=== PATIENT | male | born 1940 | race Caucasian/White ===

== ENCOUNTER → 2020-04-03 | Outpatient (CLI) | payer OTHER | END | disposition home or self-care (01) | LOC: SHCH 11:06 | PROVIDERS: ATTEND Internal Medicine | DX: I37.1 Nonrheumatic pulmonary valve insufficiency (principal); R00.1 Bradycardia, unspecified; R55 Syncope and collapse; I10 Essential (primary) hypertension; E78.5 Hyperlipidemia, unspecified | CPT/HCPCS: 93306; 93356 ==

== ENCOUNTER 2020-12-16 12:03 | Inpatient (IN) | payer OTHER ==
[~2020-12-16] VITALS: Ht 160 cm; Wt 90.9 kg
[2020-12-16 12:42] LABS: BASOPHILS % (AUTO) 0.8 % (0.0-5.0); EOSINOPHILS % (AUTO) 3.5 % (0.0-8.0); HEMATOCRIT 39.4 % (42-54); LYMPHOCYTES % (AUTO) 28.1 % (21.0-51.0); MEAN CORPUSCULAR HEMOGLOBIN 31.4 pg (27.0-33.0); MEAN CORPUSCULAR VOLUME 92.3 fL (79-99); MONOCYTES % (AUTO) 11.4 % (3.0-13.0); NEUTROPHILS % (AUTO) 55.7 % (40.0-77.0); PLATELET COUNT (AUTO) 254 K/uL (130-400); RED BLOOD CELL COUNT(AUTO) 4.27 MIL/uL (4.50-6.20); RED CELL DISTRIBUTION WIDTH 12.8 % (11.0-15.5); WHITE BLOOD COUNT (AUTO) 8.8 K/uL (4.8-10.8)
[2020-12-16 13:06] LABS: ALBUMIN 3.5 g/dL (3.5-5.0); BILIRUBIN,TOTAL 0.5 mg/dL (0.2-1.0); TOTAL PROTEIN, SERUM 7.5 g/dL (6.0-8.3)
[2020-12-16] MEDS: LOSARTAN 100 MG TABLET PO SCH (15:30)
[2020-12-16] MEDS ORDERED: HYDRALAZINE 20MG/ML VIAL IM PRN (15:30)
[2020-12-16] MEDS ORDERED: ONDANSETRON 4MG INJ IVP PRN (16:00)
[2020-12-16] MEDS ORDERED: ACETAMINOPHEN 325 MG TAB PO PRN (16:00)
[2020-12-16] MEDS ORDERED: MORPHINE 2 MG SYG IVP PRN (16:00)
[2020-12-16] MEDS: PANTOPRAZOLE 40 MG TAB DR PO SCH (16:50)
[2020-12-16] MEDS: ATORVASTATIN 40 MG TABLET PO SCH (20:54)
[2020-12-17] VITALS (11 sets, daily range): BP systolic 115–179; BP diastolic 59–86
[2020-12-17] MEDS ORDERED: LEVO100 PO (02:02)
[2020-12-17] MEDS ORDERED: ATOR40TA69 PO (02:02)
[2020-12-17] MEDS ORDERED: MULT-1367 PO (02:02)
[2020-12-17] MEDS ORDERED: LOSA100T58 PO (02:02)
[2020-12-17] MEDS ORDERED: OMEP20CA12 PO (02:02)
[2020-12-17] MEDS ORDERED: RIVA2.5T PO (02:02)
[2020-12-17] MEDS ORDERED: METO100T14 PO (02:02)
[2020-12-17] MEDS ORDERED: CHOL400C9 PO (03:36)
[2020-12-17] MEDS ORDERED: AEC81 PO (03:36)
[2020-12-17] MEDS: LEVOTHYROXINE 100 MCG TABLET PO SCH (06:00)
[2020-12-17 06:22] LABS: BASOPHILS % (AUTO) 0.6 % (0.0-5.0); EOSINOPHILS % (AUTO) 3.8 % (0.0-8.0); LYMPHOCYTES % (AUTO) 30.7 % (21.0-51.0); MEAN CORPUSCULAR HEMOGLOBIN 31.6 pg (27.0-33.0); MEAN CORPUSCULAR HGB CONC 34.1 g/dL (32.0-36.0); MEAN CORPUSCULAR VOLUME 92.7 fL (79-99); MONOCYTES % (AUTO) 8.2 % (3.0-13.0); NEUTROPHILS % (AUTO) 56.2 % (40.0-77.0); PLATELET COUNT (AUTO) 224 K/uL (130-400); RED BLOOD CELL COUNT(AUTO) 3.99 MIL/uL (4.50-6.20); RED CELL DISTRIBUTION WIDTH 12.9 % (11.0-15.5); WHITE BLOOD COUNT (AUTO) 8.8 K/uL (4.8-10.8)
[2020-12-17 07:05] LABS: ALANINE AMINOTRANSFERASE 26 U/L (12-78); ALBUMIN 3.7 g/dL (3.5-5.0); ASPARTATE AMINOTRANSFERASE 20 U/L (10-37); BILIRUBIN,TOTAL 0.6 mg/dL (0.2-1.0); CARBON DIOXIDE 25 mmol/L (21-32); CHLORIDE 108 mmol/L (101-111); GLOMERULAR FILTR. RATE CALC 77 mL/min (>60); GLUCOSE,RANDOM 99 mg/dL (70-105); POTASSIUM 4.1 mmol/L (3.5-5.1); SODIUM SERUM 144 mmol/L (136-145); UREA NITROGEN, BLOOD 26 mg/dL (7-18)
[2020-12-17 07:44] LABS: INR 1.05 (0.85-1.15); PROTHROMBIN TIME 11.4 SEC (9.6-11.6)
[2020-12-17 07:45] LABS: PARTIAL THROMBOPLASTIN TIME 24.7 SEC (26.3-35.5)
[2020-12-17] MEDS ORDERED: ENOXAPARIN SODIUM 30 MG/0.3 ML SQ SCH (09:00)
[2020-12-17] MEDS: LOSARTAN 100 MG TABLET PO SCH (09:54)
[2020-12-17] MEDS: PANTOPRAZOLE 40 MG TAB DR PO SCH (09:54)
[2020-12-17] MEDS ORDERED: DILTIAZEM 25MG INJ IVP SCH (10:00)
[2020-12-17] MEDS ORDERED: DILTIAZEM 125 MG/25 ML INJ 125 MG in 0.9%NACL 100ML 100 ML IV PRN (10:00)
[2020-12-17] MEDS: DRONEDARONE HYDROCHLORIDE 400 MG TABLET PO SCH ×2 (10:47→21:04)
[2020-12-17] MEDS ORDERED: SODIUM BICARB 50MEQ 50ML VIAL 0 ML ONE (12:12)
[2020-12-17] MEDS ORDERED: IODIXANOL 320 MG/ML 100 ML VIAL ONE (12:12)
[2020-12-17] MEDS ORDERED: LIDOCAINE HCL 1% MDV 50ML VIAL ONE (12:13)
[2020-12-17] MEDS: 0.9%NACL 1000ML 1,000 ML IV SCH ×3 (12:56→23:42)
[2020-12-17] MEDS ORDERED: CEFAZOLIN SODIUM 1 GM VIAL ONE (14:29)
[2020-12-17] MEDS ORDERED: BUPIVACAINE/PF 0.25% 30ML VIAL IJ ONE (15:05)
[2020-12-17] MEDS ORDERED: MIDAZOLAM HCL 1 MG/ML 2ML VIAL ONE ×2 (15:07→15:23)
[2020-12-17] MEDS ORDERED: MEPERIDINE-PF 25 MG/ML SYG ONE ×2 (15:07→15:23)
[2020-12-17] MEDS ORDERED: METOPROLOL TARTRATE 1 MG/ML 5ML VIAL IV ONE (16:09)
[2020-12-17] MEDS ORDERED: OCTYL 2-CYANOACRYLATE 1 EACH TP ONE ×2 (16:14→16:15)
[2020-12-17] MEDS ORDERED: ACETAMINOPHEN WITH CODEINE 1 TAB TAB PO PRN ×2 (17:00)
[2020-12-17] MEDS ORDERED: ONDANSETRON 4MG INJ IV PRN (17:00)
[2020-12-17] MEDS ORDERED: TEMAZEPAM 30 MG CAP PO PRN (17:00)
[2020-12-17] MEDS: LABETALOL HCL 100 MG TABLET PO SCH ×2 (17:48→21:00)
[2020-12-17] MEDS: ATORVASTATIN 40 MG TABLET PO SCH (21:04)
[2020-12-17] MEDS: CEFAZOLIN SODIUM 1 GM VIAL IVP SCH (23:42)
[2020-12-18] VITALS: BP 145/69
[2020-12-18 04:00] VITALS: BP 141/66
[2020-12-18] MEDS: LEVOTHYROXINE 100 MCG TABLET PO SCH (05:22)
[2020-12-18] MEDS: DRONEDARONE HYDROCHLORIDE 400 MG TABLET PO SCH (05:23)
[2020-12-18] MEDS: LABETALOL HCL 100 MG TABLET PO SCH (05:23)
[2020-12-18] MEDS: 0.9%NACL 1000ML 1,000 ML IV SCH (05:24)
[2020-12-18] MEDS: CEFAZOLIN SODIUM 1 GM VIAL IVP SCH (05:27)
[2020-12-18 07:46] VITALS: BP 129/67
[2020-12-18] MEDS: PANTOPRAZOLE 40 MG TAB DR PO SCH (08:57)
[2020-12-18] MEDS: LOSARTAN 100 MG TABLET PO SCH (08:57)
[2020-12-18] MEDS ORDERED: DRON400T7 PO (09:27)
[2020-12-18 11:48] VITALS: BP 108/95
[2020-12-19] MEDS ORDERED: RIVAROXABAN 2.5 MG TABLET PO SCH (17:00)
== END 2020-12-18 14:34 | disposition home or self-care (01) | DRG 243 ==
LOC: EDH 12:03 → EDHIP 15:34 → 4DH 12-17 00:27
PROVIDERS: ADMIT Hospitalist; ATTEND Hospitalist
PROC: 0JH606Z Insertion of Pacemaker, Dual Chamber into Chest Subcutaneous Tissue and Fascia, Open Approach (ICD-10-PCS; principal; 2020-12-17)
PROC: 02HK3JZ Insertion of Pacemaker Lead into Right Ventricle, Percutaneous Approach (ICD-10-PCS; 2020-12-17)
PROC: 02H63JZ Insertion of Pacemaker Lead into Right Atrium, Percutaneous Approach (ICD-10-PCS; 2020-12-17)
DX: I49.5 Sick sinus syndrome (principal); I50.32 Chronic diastolic (congestive) heart failure; I48.0 Paroxysmal atrial fibrillation; I25.10 Atherosclerotic heart disease of native coronary artery without angina pectoris; I95.1 Orthostatic hypotension; E78.00 Pure hypercholesterolemia, unspecified; E78.5 Hyperlipidemia, unspecified; E03.9 Hypothyroidism, unspecified; E66.01 Morbid (severe) obesity due to excess calories; I73.9 Peripheral vascular disease, unspecified; D64.9 Anemia, unspecified; S00.10XA Contusion of unspecified eyelid and periocular area, initial encounter; Y93.89 Activity, other specified; Y92.89 Other specified places as the place of occurrence of the external cause; Y99.8 Other external cause status; Z68.35 Body mass index [BMI] 35.0-35.9, adult; Z91.19 Patient's noncompliance with other medical treatment and regimen; Z95.5 Presence of coronary angioplasty implant and graft; Z79.01 Long term (current) use of anticoagulants; Z79.82 Long term (current) use of aspirin; Z79.899 Other long term (current) drug therapy; Z82.49 Family history of ischemic heart disease and other diseases of the circulatory system; I11.0 Hypertensive heart disease with heart failure
CPT/HCPCS: 33208; 36415; 71045; 71046; 80053; 82607; 82728; 82746; 83540; 84484; 85025; 85610; 85730; 93005; 99156; 99157; C1785; G0378; J0690; J2175; J2250; J2405; J3490; Q9967

== ENCOUNTER → 2023-07-03 | Outpatient (CLI) | payer OTHER ==
[~2023-07-03] MED LIST: ATOR40TA69 PO; CHOL10CA2 PO; DRON400T7 PO; IOHEXOL 350 MG/ML 100ML INFUS..BTL IV ONE; LEVO100 PO; LOSA100T59 PO; MULT-1367 PO; OMEP20CA12 PO
== END | disposition home or self-care (01) ==
LOC: RAH 07:41
PROVIDERS: ATTEND Internal Medicine Cardiovascular Disease
DX: I71.43 Infrarenal abdominal aortic aneurysm, without rupture (principal); I70.0 Atherosclerosis of aorta; K57.90 Diverticulosis of intestine, part unspecified, without perforation or abscess without bleeding; M47.815 Spondylosis without myelopathy or radiculopathy, thoracolumbar region; Z95.828 Presence of other vascular implants and grafts
CPT/HCPCS: 74175; Q9967

== ENCOUNTER 2024-04-15 07:18 | Day surgery (SDC) | payer OTHER ==
[2024-04-11 08:48] VITALS: BP 178/62; PULSE 79; RESP 18; TEMP 97.7
[2024-04-11 08:52] LABS: APPEARANCE,URINE CLEAR (CLEAR); BILIRUBIN,URINE NEGATIVE (NEGATIVE); COLOR,URINE LIGHT-YELLOW (YELLOW); GLUCOSE, URINE (UA) NEGATIVE (NEGATIVE); KETONES,URINE NEGATIVE (NEGATIVE); LEUKOCYTE ESTERASE ,URINE NEGATIVE Leu/uL (NEGATIVE); NITRATE,URINE NEGATIVE (NEGATIVE); OCCULT BLOOD,URINE NEGATIVE (NEGATIVE); PH,URINE 5.5 (5.0-8.0); PROTEIN,URINE NEGATIVE (NEGATIVE); UROBILINOGEN,URINE 0.2 mg/dL (0.2-1.0)
[2024-04-11 08:54] LABS: ADD UA MICROSCOPIC NO
[2024-04-11 08:59] LABS: INR 1.08 (0.85-1.15); PROTHROMBIN TIME 11.4 SEC (9.6-11.6)
[2024-04-11 09:01] LABS: PARTIAL THROMBOPLASTIN TIME 29.1 SEC (26.3-35.5)
--- NOTE | 2024-04-11 09:46 | EKG ---
[facility] Test Date: 2024-04-11 Test Time: 09:33:38 Pat Name: NETO RANGEL Department: [facility] Room: Gender: M Pharmacy Operations Coordinator: [id number] : 1940 Requested By: Paula CLARK Order Number: [id number] Reading MD: Jami Hyatt Measurements Intervals [place] Rate: 60 P: 0 ME: 202 QRS: 44 QRSD: 85 T: 17 QT: 437 QTc: 439 Interpretive Statements Atrial-paced complexes Compared to ECG 12/16/2020 12:33:11 Sinus bradycardia no longer present Electronically Signed On 04-13-2024 08:37:56 DIRECTOR OF CORPORATE RESPONSIBILITY by Jami Hyatt Please click the below link to view image of tracing.
--- NOTE | 2024-04-11 10:43 | HMCIMG ---
CHEST 1VW HISTORY: Preop COMPARISON: 12/18/2020 FINDINGS: A frontal projection of the chest was obtained. No acute pulmonary infiltrates is seen. The heart is borderline enlarged. Aortic calcifications are seen. Degenerative changes are seen. Pacemaker is seen entering from the left. IMPRESSION: 1. No acute pulmonary infiltrate is seen.
[~2024-04-15] VITALS: Ht 160 cm; Wt 99.2 kg
[2024-04-15] VITALS (10 sets, daily range): BP systolic 119–180; BP diastolic 51–82; PULSE 60–85; RESP 12–19; TEMP 97.9
[~2024-04-15 07:18] MED LIST changes: +AMLO2.5T4 PO; +APIX5TAB PO; -CHOL10CA2 PO; -IOHEXOL 350 MG/ML 100ML INFUS..BTL IV ONE; +METO100T14 PO; -MULT-1367 PO
[2024-04-15] MEDS: 0.9%NACL 1000ML 1,000 ML IV SCH (07:34)
[2024-04-15 07:47] LABS: BASOPHILS # (AUTO) 0.08 K/uL (0.00-0.20); BASOPHILS % (AUTO) 1.2 % (0.0-5.0); EOSINOPHILS # (AUTO) 0.36 K/uL (0.00-0.70); EOSINOPHILS % (AUTO) 5.2 % (0.0-8.0); IMMATURE GRANULOCYTE ABSOLUTE 0.02 K/uL (0-1); LYMPHOCYTES # (AUTO) 2.3 K/uL (1.0-4.8); LYMPHOCYTES % (AUTO) 33.6 % (21.0-51.0); MEAN CORPUSCULAR HEMOGLOBIN 31.8 pg (27.0-33.0); MEAN CORPUSCULAR HGB CONC 33.7 g/dL (32.0-36.0); MEAN CORPUSCULAR VOLUME 94.5 fL (79-99); MONOCYTES # (AUTO) 0.8 K/uL (0.1-1.0); MONOCYTES % (AUTO) 11.4 % (3.0-13.0); NEUTROPHILS # (AUTO) 3.4 K/uL (1.8-7.7); NEUTROPHILS % (AUTO) 48.3 % (40.0-77.0); PLATELET COUNT (AUTO) 228 K/uL (130-400); RED BLOOD CELL COUNT(AUTO) 4.02 MIL/uL (4.50-6.20); RED CELL DISTRIBUTION WIDTH 12.8 % (11.0-15.5); WHITE BLOOD COUNT (AUTO) 6.9 K/uL (4.8-10.8)
[2024-04-15 07:55] LABS: CREATININE 1.2 mg/dL (0.5-1.3); POTASSIUM 4.7 mmol/L (3.5-5.1)
[2024-04-15] MEDS ORDERED: SODIUM BICARB 50MEQ 50ML VIAL 50 ML ONE (08:02)
[2024-04-15] MEDS ORDERED: niCARDIpine 25MG INJ IV ONE (08:02)
[2024-04-15] MEDS ORDERED: IOHEXOL 350 MG/ML 100ML INFUS..BTL IV ONE (08:02)
[2024-04-15] MEDS ORDERED: LIDOCAINE HCL 400MG/20ML VIAL ONE (08:02)
[2024-04-15] MEDS ORDERED: HEParin 10,000 UNIT/10ML (1,000 UNIT/ML) VIAL ONE (08:02)
[2024-04-15] MEDS ORDERED: NITROGLYCERIN 50MG VIAL ONE (08:03)
[2024-04-15] MEDS ORDERED: HEParin-NS 1,000 UNIT/500 ML 1,000 ML IV ONE (08:03)
[2024-04-15] MEDS ORDERED: MIDAZOLAM HCL 1 MG/ML 2ML VIAL ONE ×3 (08:25→09:33)
[2024-04-15] MEDS ORDERED: FENTanyl CITRate PF 50 MCG/1 ML 2ML VIAL ONE (08:27)
[2024-04-15] MEDS ORDERED: HEParin-NS 1,000 UNIT/500 ML 500 ML IV ONE (09:50)
[2024-04-15] MEDS ORDERED: ASPIRIN 325MG EC TAB PO ONE (10:11)
[2024-04-15] MEDS ORDERED: cloPIDOgrel 300MG TAB ONE (10:11)
[2024-04-15] MEDS ORDERED: 0.9%NACL 1000ML 1,000 ML IV SCH (10:30)
--- NOTE | 2024-04-15 10:53 | CCATH ---
PROCEDURES: * Left heart catheterization. * Selective diagnostic right and left coronary arteriogram. * Angioplasty and stent placement in the mid circumflex. * Balloon angioplasty POBA of the distal circumflex. * Stent placement of the ostial to proximal circumflex. * Conscious sedation for 90 minutes. INDICATIONS: * Recurrent angina, known history of coronary artery disease. * Status post remote angioplasty and stent placement in the distal circumflex. 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 TOTAL CONTRAST: Approximately 130 mL. APPROACH: Right radial approach. DESCRIPTION OF PROCEDURE: The patient was taken to the cardiac catheterization lab after appropriate operative consents were signed. He was prepped and draped in the usual fashion. After conscious sedation was administered, the right radial artery region was infiltrated with 2% Xylocaine without epinephrine. A 6-[place] slender radial sheath was advanced in retrograde fashion by the modified Seldinger technique. At this point, a 0.035 wire was advanced and followed by TIG 4 catheter. This was performed after full heparinization. The catheter was advanced and placed in the left ventricular cavity. Left ventricular end-diastolic pressure measurement was obtained. Ventriculography was deferred. The patient had preserved LV systolic function by noninvasive studies. Pullback revealed no evidence of aortic stenosis. The catheter was then engaged ostium of the right coronary artery. This was imaged in multiplane. This was a small codominant vessel that had 50% lesion in the mid portion, gave rise to a PDA. The PDA had a 50% lesion. The JL4 was selectively engaged in the circumflex. The patient did not have a left main. There was 2 separate ostia for the left anterior descending and circumflex. The circumflex was a large vessel that gave rise to several marginal branches and ongoing circumflex. The first marginal was normal. Mid circumflex between the first and second marginal had a 70% ostial lesion and there was evidence of a stent at the distal segment just after the first marginal and had a chronic total occlusion in the distal portion after the second marginal branch. The LAD was not imaged as the patient had 2 separate left main osti. The first OM and the second OM were patent. The second OM had 70% lesion at its ostium. This was an area that was covered by the previously deployed stent. The proximal portion of the stent between OM1 and OM2 had a 70% in-stent restenosis and was 100% occluded distally. There was evidence of auto collateralization to the distal PLVB, which was imaged to have chronic total occlusion of the distal circumflex. At this point, we had to utilize an FL3.5 to manage to engage in the ostium of the LAD. This was imaged in multiplane, was a large vessel that had a 20% lesion in the mid portion, gave rise to several diagonals and septal perforators. The LAD was free of other significant stenotic lesions. Given the patient's persistent symptoms, we elected to proceed with an angioplasty of the mid circ in an attempt at angioplasty of the OM2 through the stent struts. We utilized 3.5 guider which was engaged in the ostium of the circumflex. A 0.014 wire was advanced and crossed into the OM2. Multiple attempts were utilized to cross with a 2.5 mm balloon and 1.5 mm balloon without success. We then elected to utilize a GuideLiner to be able to dilate that OM1. In the meantime, 0.014 wire was placed in the distal circumflex. This was dilated with balloon angioplasty with suboptimal results. We utilized the GuideLiner and despite having a GuideLiner in place, we were never able to cross the OM2 lesion through the stent struts. At this point, it was evident that the patient had a dissection in the ostial to proximal segment of the circumflex, which was induced by the GuideLiner. Given that, I elected to proceed with a repair of that with a 3.0 x 12 [place] stent, which was inflated to nominal pressures with good results. We were then able to advance a stent in the mid portion of the circumflex between OM1 and OM2 within the previously deployed stent and there was a 2.5 x 8 which was deployed to nominal pressure with good final angiographic results. At this point, the procedure was completed, the guide catheter was withdrawn over an indwelling wire. Radial band was applied. The patient tolerated the procedure well and left cardiac catheterization lab in stable condition. FINAL IMPRESSION: * Severe coronary artery disease. 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 * No aortic stenosis. * Preserved left ventricular systolic function by noninvasive studies. * Successful balloon angioplasty and stent placement of the ostial to proximal circumflex because of a GuideLiner induced dissection with a 3.0 x 12 [place] with good results and successful balloon angioplasty and stent placement in the mid circumflex with a 2.5 x 8 [place] Brandon stent with good final angiographic results. PLAN: Continue medical management. TID: [id number] RECEIPT: [id number]
[2024-04-15] MEDS ORDERED: CLOP-31 PO (11:48)
[2024-04-15] MEDS ORDERED: PANT40TA54 PO (11:49)
--- NOTE | 2024-04-15 13:18 | NUR ---
VASC band site with No sign of bleeding, bruising or hematoma evident. VASC band removed per protocol. Cleansed with Chloroprep, Tegaderm with light Coban as reminder not to bend arm. Patient and voiced understanding to care and expectations to Right Radial site.
--- NOTE | 2024-04-15 14:47 | NUR ---
Full and complete discharge instructions given to Patient and Family both verbally and in writing. Explained Cardiac Catheterization procedure precautions and follow up. All questions answered. PIV removed with catheter tip intact. Radial site and clean, dry without any sign of bleeding, bruising or hematoma. Home with Family W/C to POV.
== END 2024-04-15 14:50 | disposition home or self-care (01) ==
LOC: DAH 07:18
PROVIDERS: ATTEND Internal Medicine Cardiovascular Disease
DX: I25.118 Atherosclerotic heart disease of native coronary artery with other forms of angina pectoris (principal); I25.82 Chronic total occlusion of coronary artery; T82.855A Stenosis of coronary artery stent, initial encounter; I48.19 Other persistent atrial fibrillation; E78.5 Hyperlipidemia, unspecified; I71.40 Abdominal aortic aneurysm, without rupture, unspecified; I49.5 Sick sinus syndrome; R06.02 Shortness of breath; I73.9 Peripheral vascular disease, unspecified; I11.0 Hypertensive heart disease with heart failure; I50.30 Unspecified diastolic (congestive) heart failure; E66.9 Obesity, unspecified; Z68.39 Body mass index [BMI] 39.0-39.9, adult; Z79.890 Hormone replacement therapy; Z95.0 Presence of cardiac pacemaker; Z95.5 Presence of coronary angioplasty implant and graft; Z79.01 Long term (current) use of anticoagulants; Z79.899 Other long term (current) drug therapy; Y71.2 Prosthetic and other implants, materials and accessory cardiovascular devices associated with adverse incidents
CPT/HCPCS: 83880; 85610; 85730; 81003; 36415 ×2; 71045; 93005; 93458; 80048; 85347; 85025; C9607; Q9965 ×2; C1769 ×3; C1874 ×2; C1887 ×2; A4649; C1894; C1725 ×3; J3010; J3490 ×4; J1644 ×3; J2250 ×3; Q9967; A4215; A4222; A6260; A4663; A6258; A4606; A4223 ×2; 96360; 96361; 99156; 99157